=== PATIENT | male | born 1935 | race Caucasian/White ===

== ENCOUNTER → 2016-08-31 | Outpatient (CLI) | payer OTHER ==
[~2016-08-31] MED LIST: ATV5 PO; CHOL100010 PO; FINA5TAB4 PO; FLUT0.15 INTNAS; HYDR25TA4 PO
== END | disposition home or self-care (01) ==
LOC: C.RDSM 12:15
PROVIDERS: ATTEND Physical Medicine & Rehabilitation Sports Medicine
DX: M25.559 Pain in unspecified hip (principal); M25.562 Pain in left knee

== ENCOUNTER → 2017-08-04 | Outpatient (CLI) | payer OTHER ==
--- NOTE | 2017-08-04 15:43 | DIAGNOSTIC IMAGING REPORT ---
CHEST 2 VIEWS ROUTINE CLINICAL HISTORY: 81 years-old Male presenting with ABNORMAL Findings, hypertension. TECHNIQUE: PA and lateral views of the chest were obtained. COMPARISON: 03/17/2016. FINDINGS: Cardiomediastinal silhouette normal. Minimal left basilar opacities, unchanged. No pleural effusion or pneumothorax. Degenerative changes of the thoracic spine. Cholecystectomy clips noted. IMPRESSION: 1. No acute cardiopulmonary disease. Electronically signed by: Gallito Davenport M.D. 08/04/2017 3:42 PM Dictated Date/Time: 08/04/2017 3:41 PM
== END | disposition home or self-care (01) ==
LOC: C.RAD1850 15:16
PROVIDERS: ATTEND Family Medicine
DX: R93.8 Abnormal findings on diagnostic imaging of other specified body structures (principal); I10 Essential (primary) hypertension

== ENCOUNTER 2021-03-18 05:03 | Observation (INO) ==
--- NOTE | 2021-03-04 12:53 | PAT Medication Instructions ---
Medication Instructions Date of Service March 04, 2021 Home Medications lorazepam 0.5 mg tablet 0.5 mg PO HS finasteride 5 mg tablet 5 mg PO QAM cyanocobalamin (vitamin B-12) 1,000 mcg tablet (Vitamin B-12) 2,000 mcg PO QAM ] oxybutynin chloride 10 mg tablet,extended release 24 hr 10 mg PO HS empagliflozin 10 mg tablet (Jardiance) 10 mg PO QPM lisinopril 10 mg tablet 10 mg PO QAM meloxicam 15 mg tablet 15 mg PO QAM acetaminophen 500 mg tablet (Tylenol Extra Strength) 1,000 mg PO AMHS ASK your surgeon for instructions meloxicam 15 mg tablet 15 mg PO QAM DO NOT take the morning of surgery cyanocobalamin (vitamin B-12) 1,000 mcg tablet (Vitamin B-12) 2,000 mcg PO QAM lisinopril 10 mg tablet 10 mg PO QAM Take morning of surgery With a small sip of water, OTHERWISE NOTHING TO EAT OR DRINK AFTER MIDNIGHT: finasteride 5 mg tablet 5 mg PO QAM acetaminophen 500 mg tablet (Tylenol Extra Strength) 1,000 mg PO AMHS (okay to take up to 4 hours prior to surgery if needed) Take evening before surgery lorazepam 0.5 mg tablet 0.5 mg PO HS oxybutynin chloride 10 mg tablet,extended release 24 hr 10 mg PO HS empagliflozin 10 mg tablet (Jardiance) 10 mg PO QPM acetaminophen 500 mg tablet (Tylenol Extra Strength) 1,000 mg PO AMHS Other Notes If you have any questions please call us at [phone] or [phone] or [phone] or [phone]
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
[2021-03-18] MEDS ORDERED: oxyCODONE HCL 10 MG TABCR (OxyCONTIN) PO SCH (06:00)
[2021-03-18] MEDS ORDERED: TRANEXAMIC ACID 1,000 MG **IV Intra-op IV SCH (06:00)
[2021-03-18] MEDS ORDERED: cloNIDine HCL 0.1 MG/24 HR TRANSDERM SYS TD SCH (06:00)
[2021-03-18] MEDS ORDERED: traMADol HCL 50 MG TABLET PO SCH (06:00)
[2021-03-18] MEDS ORDERED: TRANEXAMIC ACID 1,000 MG **IV Pre-op IV SCH (06:00)
[2021-03-18] MEDS ORDERED: LR 60ML/HR IV SCH (06:00)
[2021-03-18] MEDS ORDERED: ACETAMINOPHEN 500 MG TAB PO SCH (06:00)
[2021-03-18] MEDS ORDERED: CeleBREX 200 MG CAP PO SCH (06:00)
[2021-03-18] MEDS ORDERED: ceFAZolin 1000MG 1,000 MG/7.5 ML SYR IV SCH (06:00)
[2021-03-18] MEDS ORDERED: METOCLOPRAMIDE HCL 10 MG TABLET PO SCH (06:00)
[2021-03-18] MEDS ORDERED: LR 500ML BOLUS, THEN 15ML/HR IV SCH (06:00)
[2021-03-18] MEDS ORDERED: ROPIVACAINE 0.5% HCL/PF 150 MG, BUPIVACAINE 0.75% MPF 20 ML, EPINEPHrine 0.15 MG, Ketor... INFIL SCH (06:00)
[2021-03-18] MEDS ORDERED: FAMOTIDINE 20 MG TAB PO SCH (06:00)
[2021-03-18] MEDS ORDERED: GABAPENTIN 300 MG CAP PO SCH (06:00)
[2021-03-18] MEDS ORDERED: ROPIVACAINE 0.5% 5 MG/ML 30 ML VIAL ONE (06:17)
[2021-03-18] MEDS ORDERED: BUPIVACAINE 0.5 % 5 MG/1 ML PF 10ML VIAL ONE (06:17)
[2021-03-18] MEDS ORDERED: KETAMINE 50 MG/5 ML SYRINGE ONE (06:30)
[2021-03-18] MEDS ORDERED: MIDAZOLAM HCL 1 MG/ML 2ML VIAL ONE (06:30)
--- NOTE | 2021-03-18 06:42 | History & Physical Bridge Note ---
Date of Service March 18, 2021 History & Physical Bridge Note I have examined the patient, reviewed the History & Physical and in the interval since the performance of the History & Physical I have noted the following changes of clinical significance: no changes noted
[2021-03-18] MEDS ORDERED: VANCOMYCIN HCL 1000MG/20ML VIAL ONE (06:59)
[2021-03-18] MEDS ORDERED: ONDANSETRON INJ 2 MG/ML 2 ML VIAL IV PRN ×2 (07:05→11:33)
[2021-03-18] MEDS ORDERED: fentaNYL citrate 100 MCG/2 ML VIAL IV PRN (07:05)
[2021-03-18] MEDS ORDERED: ePHEDrine sulfate 50 MG/ML AMP IV PRN (07:05)
[2021-03-18] MEDS ORDERED: HYDROmorphone INJ 2 MG/ML SYR/VIAL IV PRN (07:05)
[2021-03-18] MEDS ORDERED: ATROPINE SULFATE 0.1 MG/ML 10ML SYR IV PRN (07:05)
[2021-03-18] MEDS ORDERED: LIDOCAINE 2% 2 ML VIAL/AMP(20MG/ML) INFIL ONE (07:16)
[2021-03-18] MEDS ORDERED: ONDANSETRON INJ 2 MG/ML 2 ML VIAL ONE (07:16)
[2021-03-18] MEDS ORDERED: PROPOFOL IV EMULSION 10 MG/ML 20 ML VIAL IV ONE (07:16)
[2021-03-18] MEDS ORDERED: GLYCOPYRROLATE 0.2 MG/ML VIAL ONE (07:16)
[2021-03-18] MEDS: ORTHO JOINT ANESTHETIC ONE ×2 (10:50→13:00)
--- NOTE | 2021-03-18 11:21 | Post Operative Brief Note ---
Immediate Post Op Note v1 Date of Surgery March 18, 2021 Pre & Post Diagnosis Operation Date: 03/18/21 07:00 Pre-Op Diagnosis: Right Knee Osteoarthritis Post-Op Diagnosis: Right Knee Osteoarthritis I identified the patient and participated in the time-out.: Yes Procedure Operation Date: 03/18/21 07:00 Actual Procedures p Right Total Knee Arthroplasty(Right) - Gallito Roberts MD Surgeon Gallito Roberts MD Building Guard Deputy Sheriff gunner steward Estimated Blood Loss 50 Findings Consistent with Post-Op Diagnosis Specimens bone and tissue Anesthesia Type MAC Spinal Regional Complications none Disposition Accompanied Patient To Recovery: No Disposition: Recovery Room
[2021-03-18] MEDS ORDERED: diphenhydrAMINE 50 MG/ML VIAL IV PRN (11:33)
[2021-03-18] MEDS ORDERED: METOCLOPRAMIDE HCL INJ 5 MG/ML 2 ML VIAL IV PRN (11:33)
[2021-03-18] MEDS ORDERED: MAGNESIUM HYDROXIDE SUSP 30 ML UDC PO PRN (11:33)
[2021-03-18] MEDS ORDERED: bisacodyL 10 MG SUPP PR PRN (11:33)
[2021-03-18] MEDS ORDERED: NALOXONE HCL 0.4 MG/1 ML VIAL/CARP IV PRN (11:33)
[2021-03-18] MEDS ORDERED: TAMSULOSIN HCL 0.4 MG CAP PO PRN (11:33)
[2021-03-18] MEDS ORDERED: ALUMINUM/MAGNESIUM SUSP 30 ML UDC PO PRN (11:33)
[2021-03-18] MEDS ORDERED: oxyCODONE HCL IR 5 MG TAB (IMMEDIATE RELEASE) PO PRN (11:33)
--- NOTE | 2021-03-18 11:33 | Operative Report ---
Post Operative Report Pre & Post Diagnosis Operation Date: 03/18/21 07:00 Pre-Op Diagnosis: Right Knee Osteoarthritis Post-Op Diagnosis: Right Knee Osteoarthritis I identified the patient and participated in the time-out.: Yes Procedure Operation Date: 03/18/21 07:00 Actual Procedures p Right Total Knee Arthroplasty(Right) - Gallito Roberts MD Surgeon Gallito Roberts MD Fibrous Wallboard Inspector Ezequiel Awad PA-Yoly Estimated Blood Loss 50 Findings Consistent with Post-Op Diagnosis Specimens none Description of Procedure I was present for a majority of the case assisting with positioning, prepping, draping, wound retraction and hardware placement. No fellow present. Please see Dr. Roberts procedure note for specifics of the case. I attest to the content of the Intraoperative Record and any orders documented therein. Any exceptions are noted below.
--- NOTE | 2021-03-18 11:58 | Anesthesiology Progress Note ---
Date of Service March 18, 2021 Anesthesia Post Procedure Vital Signs Vital Signs: Temp Pulse Pulse Resp BP Pulse Ox 03/18/21 11:55 69 13 146/94 H 95 03/18/21 11:45 64 15 120/81 93 03/18/21 11:35 76 15 121/74 95 03/18/21 11:25 65 13 106/72 96 03/18/21 11:19 37.3 C 67 14 128/77 96 03/18/21 06:35 36.5 C 67 18 140/76 96 03/18/21 05:47 36.7 C 88 18 161/91 H 92 Transfer of Care Handoff Completed per policy Notes Mental Status: alert / awake / arousable and participated in evaluation Patient Amnestic to Procedure: Yes Nausea / Vomiting: adequately controlled Pain: adequately controlled Airway Patency, RR, SpO2: stable & adequate BP & HR: stable & adequate Hydration State: stable & adequate Neuraxial Anesthesia: was administered and sensory block is resolving Anesthetic Complications: no major complications apparent
[2021-03-18] MEDS ORDERED: PHARMACY GLYCEMIC MGMT CONSULT PRN (12:07)
--- NOTE | 2021-03-18 12:26 | XRay Report ---
RIGHT KNEE 2 VIEWS History: Right total knee arthroplasty. Degenerative arthritis. Postop. FINDINGS: The patient is status post a right total knee arthroplasty. The hardware is intact. No frac ture or dislocation. Skin jessica are in place. IMPRESSION: Right total knee arthroplasty. No evidence for hardware complication. ACT 112: Negative or not required by law. Electronically signed by: Basilio Rodarte M.D. 03/18/2021 12:24 PM
[2021-03-18] MEDS: CHECK CLONIDINE PATCH PLACEMENT SCH ×3 (13:01→23:59)
[2021-03-18] MEDS ORDERED: DEXTROSE 50% 50 ML SYRINGE IV PRN (13:15)
[2021-03-18] MEDS ORDERED: GLUCOSE 40% GEL 15 GM TUBE PO PRN (13:15)
[2021-03-18] MEDS ORDERED: GLUCAGON FOR INJ 1 MG VIAL IM PRN (13:15)
[2021-03-18] MEDS ORDERED: CARBOHYDRATES FOR HYPOGLYCEMIA PO PRN (13:15)
[2021-03-18] MEDS ORDERED: GLUCOSE 10 TABS/TUBE PO PRN (13:15)
--- NOTE | 2021-03-18 13:19 | Pharmacy Report ---
Pharmacy Glycemic Short Note 2 - Date of Service March 18, 2021 - Glycemic Short BSG Results (Last 24 hours): 03/18/21 03/18/21 03/18/21 05:18 11:22 12:44 POC Glucose 101 H 83 96 OUTPATIENT ANTIDIABETIC REGIMEN: * Jardiance 25 mg daily * HbA1C = 6.2% ASSESSMENT: * Mr Robles is an 85 y/o M with a PMH of well-controlled T2DM who presents for R TKA. Preop BSG was 101 mg/dL. * Currently BSG is 96 mg/dL. * Start Novolog weight-based stress of 2. * Hold off on basal insulin for now as patient's HbA1C indicates excellent control so should retain beta cell function. Will order NPH tomorrow based upon patient's BSGs today. * Hold Jardiance. PLAN FOR INPATIENT GLYCEMIC CONTROL: * Hold outpatient oral diabetes medications * Basal insulin * hold * Bolus insulin * NovoLog per scale ACHS or Q6hrs while NPO * Goal Range: Low 110 mg/dL - High 140 mg/dL * Correction Factor: 30 mg/dL/unit * Nutritional / Prandial insulin per carb ratio of 1 unit per 10 grams CHO consumed PLAN FOR DISCHARGE: * HbA1C indicates excellent control. Continue home regimen.
[2021-03-18] MEDS: KETOROLAC TROMETHAMINE 15 MG/ML VIAL IV SCH ×2 (13:44→20:51)
[2021-03-18] MEDS: INSULIN ASPART 100 UNITS/ML 3 ML PEN SC SCH ×3 (13:44→21:03)
[2021-03-18] MEDS: SODIUM CHLORIDE 0.9% 1000ML 1,000 ML IV SCH ×2 (14:39→23:54)
[2021-03-18] MEDS: ACETAMINOPHEN 500 MG TAB PO SCH ×2 (14:40→21:54)
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
[2021-03-18] MEDS: ceFAZolin 2000MG 2,000 MG/15 ML SYR IV SCH ×2 (16:22→23:58)
[2021-03-18] MEDS ORDERED: TRANEXAMIC ACID / 0.7% NACL 1,000 MG/100 ML BAG IV SCH (17:45)
--- NOTE | 2021-03-18 17:48 | Operative Report ---
Post Operative Report Pre & Post Diagnosis Operation Date: 03/18/21 07:00 Pre-Op Diagnosis: Right Knee Osteoarthritis Post-Op Diagnosis: Right Knee Osteoarthritis I identified the patient and participated in the time-out.: Yes Procedure Operation Date: 03/18/21 07:00 Actual Procedures p Right Total Knee Arthroplasty(Right) - Gallito Roberts MD Surgeon Gallito Roberts MD Computer Typesetter Keyliner Ezequiel Awad PABeatris Estimated Blood Loss 50 Findings Consistent with Post-Op Diagnosis Severe knee arthritis with medial compartment bone erosion and large intraosseous cyst in the tibia and medial femoral condyle Specimens Resected bone and soft tissue Anesthesia Type MAC Spinal Regional Disposition Accompanied Patient To Recovery: Yes Disposition: Recovery Room Indications Mr. Robles is 85. He has severe right knee arthritis with debilitating pain. After discussion of treatment options risks and benefits recovery. He has elected to proceed with surgery. Description of Procedure Informed consent obtained. Patient identified by me. He identified the operative site as the right knee. I marked with my initials. A preoperative surgical timeout was performed. He was taken to the operating room positioned supine on the OR table. A bump was placed under the right hip and a padded post under the right calf. A tourniquet was applied to the right thigh and the limb was prepped and draped in the usual sterile fashion he received a preoperative dose of intravenous antibiotics. DVT prophylaxis intraoperatively with foot pump on the nonoperative leg. He had a less than 5 degree flexion contracture. Flexion was approximately 120 degrees. He had 1+ MCL laxity and almost 2+ LCL laxity. Profound varus deformity. Right big toe which he recently had toenail ablation was benign. Limb exsanguinated with the Esmarch. Tourniquet inflated to 250 mmHg. A midline longitudinal incision was made followed by medial parapatellar arthrotomy. There was a well synovial lysed layer due to his chronic effusion which was removed throughout the entire knee as encountered. Patellar thickness was measured to be 24 mm. There were grade 3 changes on the patella with m arginal osteophytes which were debrided. The soft tissue synovial reflection in the lateral gutter was resected without performing a lateral release. Soft tissue in the anterior aspect the distal femur was resected. The retropatellar fat pad was resected. A an extensile medial release was performed releasing the deep MCL and pes tendons. This was carried around posterior medially and the semimembranosus and gastrocnemius were released. The medial meniscus remnant was removed. The lateral meniscus was removed. The cruciate ligaments were resected. Notch osteophytes removed. The knee was then subluxated. There is significant wear medially. Marginal osteophytes medial posterior medial removed. Significant wear on the femur as well and substantial eburnation in the medial compartment. Marginal osteophytes removed including underneath the MCL. Possible drilled into the tibia just in front of and between the tibial spines. The intramedullary alignment michael was inserted. The 3 degree cutting block was applied. It was aligned with the tibial tubercle and set to resect 10 mm off of the lateral side which corresponded to a skim cut medially. This was pinned into place and the extra medullary alignment michael was utilized to confirm slope and alignment both of which were acceptable. This cut was then made and recut as necessary. Patellar tendon protected. I then turned my attention to the femur where I drilled a balance staff staker hole just above the PCL and inserted the distal femoral cutting guide. 6 degree valgus 12 mm thick distal cut. This was pinned into place and the cut was made. The cut on the tibia revealed a large posterior cyst. This was 15 mm deep and 15 mm in diameter. It was contained by the posterior cortex. I ended up curettaging this and removing some of the sclerotic bone. It was later packed with a mixture of cortical cancellous granules bone putty and autograft. There was not enough autograft to fill both defects. On the femoral side there was a very large defect involving the medial condyle. This was just under the MCL and there was a sclerotic 3 to 4 mm rim of bone present. This perforated the medial inferior condyle posteriorly resulting in an uncontained lesion. Care was taken extraordinarily to not damage this. After the chamfer cuts had been made this defect was uncontained onto the posterior chamfer cut. The lesion was cur ettaged and I packed bone graft and allograft and autograft and putty into this area. This was brought out within a couple millimeters of the surface on both lesions which show then was to be cemented. The femoral lesion was 1-1/2 cm anterior to posterior 1-1/2 cm medial to lateral and at its deepest extent was almost 2cm in depth. It was more shallow laterally and deeper only more medially. Sclerotic areas of the bone on the femur tibia and patella were drilled as necessary. The the femur was then sized to a 5. It was actually 4-1/2. I went ahead and applied the 4 cutting block and made the anterior and posterior cuts as well as the chamfer cuts. Collateral ligaments were protected. At this time and then went ahead and applied the tibial tray. It was a size 4. The tray was lateralized and the uncapped medial bone was marked and then removed with a oscillating saw. This is the shift and resect technique. At this time the extension gap was a asymmetric 10. I was able to do further medial releasing which made this a slightly asymmetric 12 5 medially. I could not get the 12 5 block in in flexion. This necessitated additional posterior medial releasing and then further releasing of the superficial MCL most but not all. Medial soft tissue integrity was maintained. I then went ahead and I was able to get in the 12 5 block followed by the 15 5 block. This was able to be done in both flexion and extension. The lateral side was of course much laxer than the medial side and could accommodate this. There was a trace bit of residual LCL laxity in full extension and 90 degrees but what I felt acceptable. The leg was in valgus and it did not open when resting on the table with the components in. The box cutting guide was applied lateralized and the box cut was made and this femoral trial was applied. Bone grafting was performed. I then applied the tibial tray and the knee was placed through a range of motion to set the rotation which was then marked. The keel was drilled and punched and then repunched. The trial components were removed. The patellar guide was set to preserve 15 mm of bone. 38 mm 3 peg patella was selected. The cut was made. Patellar tracking was assessed at the conclusion the operation was good with no hands technique. Ortho joint mix injected in the back of the knee. Copious irrigation was performed throughout the surgery and the soft tissues were kept moist. This was done with moist sponges. I then meticulously prepared the bony surfaces. The tourniquet was let down prior to working on the patella. After 20 minutes it was reinflated. The initial tourniquet time was 125 minutes followed by 20 minutes down and then was up again for 30 minutes for cementation. After the tourniquet was put up again I irrigated and meticulously dried the bone. 2 bags of Simplex P cement were then mixed each containing 2 g of vancomycin for total 4 g of powdered Vanco. The cement was then mixed under vacuum. While in a maryjo ghy state the cement was applied. Posterior smears. Cement into the defect. The femoral femur was impacted and care was taken to not remove any cement from the defect. Tibia was cemented and the patella was as well. The knee was held in full extension with a trial spacer until the cement hardened the tourniquet was let down. Additional TXA was given. The knee slightly hyperextended and was lax with 12 5 spacer. The 15 mm spacer had full extension no laxity in full extension and no gaping open when at rest on the table. In mid position there was trace MCL laxity and 1+ LCL laxity. There was no laxity at 90 degrees for varus or valgus. The final polyethylene 15 mm was inserted after inspecting the back of the knee for cement which was removed as encountered. The back of the knee was also irrigated. Components inserted with a J[employer]J PFC Sigma fixed bearing knee. A stabilized +15 mm thick insert was utilized. A size 4 posterior stabilized femoral component and a fixed bearing keeled size 4 tibial tray and a 38 mm 3 peg oval dome patella. Patella tracked fine with no hands technique. The tissue below the equator the patella was closed with interrupted and running #1 Vicryl. The arthrotomy above the equator the patella was closed with interrupted #2 FiberWire. The subcutaneous layer is thin and only the top several centimeters required an layer of 0. The remainder was closed with 2-0 Vicryl and jessica. Leg was cleaned with wet and dry sponges and a box bulky soft sterile dressing was applied. Xeroform 4 x 4's ABD cast padding and a full-length Pete wrap followed by a hinged brace locked in extension. Patient was awake from anesthesia with difficulty and taken to recovery room in stable condition. There were no complications. Counts were correct and blood loss is estimated to be 50 cc. The remainder the Ortho joint mix was injected into the skin as well as the remainder of the knee joint while the cement was hardening at the time and at the time of wound closure. The resected bone and soft tissue were sent for specimen. At the conclusion the operation spoke to his daughter informed her of my findings and postoperative instructions were given. He may weight-bear as tolerated using the hinged brace for support. He may have range of motion as tolerated as well. I attest to the content of the Intraoperative Record and any orders documented therein. Any exceptions are noted below.
--- NOTE | 2021-03-18 18:02 | Orthopedic Progress Note ---
Date of Service March 18, 2021 Assessment & Plan (1) Arthritis of knee, right: (2) Knee joint replacement status: Plan: Doing well. Surgical findings reviewed and discussed. X-rays are reviewed and show anatomic alignment without complication or fracture. He has not voided yet and will need to monitor this. Otherwise he is afebrile his vital signs are stable. We discussed the results of the surgery including the need for extensive soft tissue releasing and bone grafting of the defects in the femur and tibia. He may weight-bear as tolerated. The brace is therefore collateral ligament protection. He can bend 0-90. We talked about pain management cont rol. Admission and Anticipated Discharge Date Admission Date: March 18, 2021 Subjective No problems noted. Pain is well controlled Physical Exam Physical Exam: Foot warm. Sensation intact throughout. 5 out of 5 ankle and toe plantarflexion dorsiflexion inversion eversion. Dorsalis pedis 2+. Dressing clean and dry. Results & Data ([facility]) Vital Signs (Past 12 Hours) Vital Signs Temp Pulse Pulse Resp BP Pulse Ox 03/18/21 15:20 36.2 C L 58 L 15 126/72 95 03/18/21 14:22 36.2 C L 70 17 136/72 94 03/18/21 13:24 35.6 C L 62 16 138/81 97 03/18/21 13:03 36.5 C 57 L 16 128/81 96 03/18/21 12:20 36.3 C L 62 16 136/87 95 03/18/21 11:55 69 13 146/94 H 95 03/18/21 11:45 64 15 120/81 93 03/18/21 11:35 76 15 121/74 95 03/18/21 11:25 65 13 106/72 96 03/18/21 11:19 37.3 C 67 14 128/77 96 03/18/21 06:35 36.5 C 67 18 140/76 96
[2021-03-18] MEDS: DOCUSATE SODIUM 100 MG CAP PO SCH (20:51)
[2021-03-18] MEDS: SENNA 8.6 MG TAB PO SCH (20:52)
[2021-03-18] MEDS: OXYBUTYNIN CHLORIDE XL 5 MG TABCR PO SCH (20:52)
[2021-03-18] MEDS ORDERED: ACETAMINOPHEN HOME PACK 500 MG TABLET PO SCH (21:00)
[2021-03-18] MEDS: LORazepam 0.5 MG TAB PO SCH (21:54)
[2021-03-19] MEDS: KETOROLAC TROMETHAMINE 15 MG/ML VIAL IV SCH ×2 (01:18→08:51)
[2021-03-19] MEDS: ACETAMINOPHEN 500 MG TAB PO SCH ×3 (05:33→22:02)
[2021-03-19] MEDS: ENOXAPARIN INJ 30 MG/0.3 ML SYR SQ SCH ×2 (05:34→18:15)
[2021-03-19 05:55] LABS: Hematocrit (blood only) 34.1 % (42-52); Hemoglobin 11.1 g/dL (14.0-18.0); Mean Corpuscular Hemoglobin 30.7 pg (25-34); Mean Corpuscular Hgb Conc 32.6 g/dL (32-36); Mean Corpuscular Volume 94.5 fL (80-100); Mean Platelet Volume 9.6 fL (7.4-10.4); Platelet Count 191 K/uL (130-400); RDW Coefficient of Variation 13.6 % (11.5-14.5); RDW Standard Deviation 47.2 fL (36.4-46.3); Red Blood Count 3.61 M/uL (4.7-6.1); White Blood Count 10.67 K/uL (4.8-10.8)
[2021-03-19] MEDS ORDERED: ENOXAPARIN INJ 30 MG/0.3 ML SYR SQ SCH (06:00)
[2021-03-19 06:25] LABS: BUN Creatinine Ratio 20.1 (10-20); Calcium 7.7 mg/dl (8.5-10.1); Creatinine Clr Calc Pharmacy 44.3 ml/min; Est GFR (African American) 59.9 ml/min; Est GFR (Non-African American) 51.7 ml/min; Potassium 4.3 mmol/L (3.5-5.1)
[2021-03-19] MEDS ORDERED: dexAMETHasone 4 MG TAB PO SCH (08:00)
--- NOTE | 2021-03-19 08:31 | Progress Notes ---
SUBJECTIVE: Resting comfortably in bed. Reports some pain overnight, which has been managed with me dication. No chest pains or shortness of breath. I spoke with the patient and with nursing. He could not void last night and had to be straight anais terized x1 for a yield of about 450. Subsequently, he has been able to void 125 mL on his own. He a t this time does not have any urinary urgency. OBJECTIVE: He is afebrile. His vital signs are stable. His dressing is clean and dry. The brace is intact. Dorsalis pedis is 2+. Strength is 5/5 with ank le and toe plantarflexion and dorsiflexion and ankle inversion and eversion. Sensation is normal thr oughout the foot. He is doing well status post total knee arthroplasty, right knee, postoperative day #1. PLAN: He can weight bear as tolerated with the brace locked in extension using a walker. PT and OT. Would like to seek placement at acute care rehab or intermediate. The brace is to be left on at all times. The brace can be unlocked so that he can do range of motion 0-90. We will continue to mo nitor his urinary symptoms and intervene as necessary. Yolienox for DVT. Job ID: [id number]
[2021-03-19] MEDS: CHECK CLONIDINE PATCH PLACEMENT SCH ×3 (08:51→23:33)
[2021-03-19] MEDS ORDERED: lisinopril 10 MG TAB PO SCH (09:00)
[2021-03-19] MEDS ORDERED: NovoLIN-N (NPH) PER UNIT CHARGE SQ ONE (09:00)
--- NOTE | 2021-03-19 09:27 | Pharmacy Report ---
Pharmacy Glycemic Short Note 2 - Date of Service March 19, 2021 - Glycemic Short BSG Results (Last 24 hours): 03/18/21 03/18/21 03/18/21 11:22 12:44 17:25 Glucose POC Glucose 83 96 99 03/18/21 03/19/21 03/19/21 21:01 05:18 08:19 Glucose 112 H POC Glucose 118 H 138 H OUTPATIENT ANTIDIABETIC REGIMEN: * Jardiance 25 mg daily * HbA1C = 6.2% ASSESSMENT: 03/19/21: * Jaya is POD #1 s/p R TKA * He received 7 units of novolog yesterday with good glycemic control. No basal insulin. * He is ordered a one time dose of dexamethasone 8 mg PO this morning. I have ordered NPH 20 units x 1 to cover for steroid induced hyperglycemia. May need to tighten carb coverage while steroid is on board. * No need for long acting basal insulin at this time Background: * Mr Robles is an 85 y/o M with a PMH of well-controlled T2DM who presents for R TKA. Preop BSG was 101 mg/dL. * Currently BSG is 96 mg/dL. * Start Novolog weight-based stress of 2. * Hold off on basal insulin for now as patient's HbA1C indicates excellent control so should retain beta cell function. Will order NPH tomorrow based upon patient's BSGs today. * Hold Jardiance. PLAN FOR INPATIENT GLYCEMIC CONTROL: * Hold outpatient oral diabetes medications * Basal insulin * NPH 20 units SQ x 1 - to be given with dexamethasone * Bolus insulin * NovoLog per scale ACHS or Q6hrs while NPO * Goal Range: Low 110 mg/dL - High 140 mg/dL * Correction Factor: 30 mg/dL/unit * Nutritional / Prandial insulin per carb ratio of 1 unit per 10 grams CHO consumed PLAN FOR DISCHARGE: * HbA1C indicates excellent control. Continue home regimen.
[2021-03-19] MEDS: FINASTERIDE 5 MG TAB PO SCH (10:15)
[2021-03-19] MEDS: DOCUSATE SODIUM 100 MG CAP PO SCH ×2 (10:15→22:03)
[2021-03-19] MEDS: CYANOCOBALAMIN 500 MCG TABLET (VITAMIN B-12) PO SCH (10:15)
[2021-03-19] MEDS: MULTIVITAMIN TAB PO SCH (10:16)
[2021-03-19] MEDS: INSULIN ASPART 100 UNITS/ML 3 ML PEN SC SCH ×4 (10:42→22:03)
[2021-03-19] MEDS ORDERED: SODIUM CHLORIDE 0.9% 500 ML IV SCH (16:15)
--- NOTE | 2021-03-19 18:16 | Hospitalist Progress Note ---
Date of Service March 19, 2021 Assessment & Plan (1) Knee joint replacement status: Plan: 03/18/[address] right total knee arthoplasty Dr Roberts (2) Type 2 diabetes mellitus: Plan: typically is on Jardiance, this will be held will be held in favor of basal bolus insulin (3) BPH (benign prostatic hyperplasia): Plan: Finestaride and oxybutynin patient does not have a Montejo catheter postoperative we will watch for urinary retention and provide as needed straight catheter orders for nursing staff (4) Acute blood loss anemia: Plan: hgb dropped to 11 no need for transfusion (5) HTN (hypertension): Plan: low bp post op day 1 likely from lisinopril holding and fluid bolus 500 ml/over 2 hours Admission and Anticipated Discharge Date Admission Date: March 18, 2021 Subjective pt is resting comfortably, has asymptomatic lower blood pressure, Review of Systems Review of Systems: Mild distress and fatigue no headache, no visual changes no speech or swallowing issues no chest pain, pressure or palpitations no shortness of breath, cough or wheezes no abdominal pain, nausea or vomiting, diarrhea or constipation no dysuria, hematuria or frequency typical post op knee replacement pain no back pain, CVA tenderness or radicular pain no bruising, bleeding or rashes no focal signs of weakness or numbness or altered sensation no complaints of anxiety or depression.. Physical Exam Physical Exam: The patient appeared well nourished and normally developed. Vital signs as documented. Head exam is normocephalic atraumatic Neck is without JVD, thyromegaly, or carotid bruits. Lungs are clear to auscultation, no focal loss of breath sounds Cardiac exam, Rhythm is regular.. No murmurs, rubs or gallops. Abdominal exam reveals normal bowel sounds, soft non tender, no masses Extremities are nonedematous and both pedal pulses are present, distal sensation is intact Neurologic exam is alert and oriented, has some memory loss, no focal loss of strength or sensation Skin is without bruises or rashes Results & Data Results & Data ([place]) Vital Signs (Past 12 Hours) Vital Signs Temp Pulse Resp BP BP Pulse Ox Pulse Ox 03/19/21 17:47 108/54 L 03/19/21 15:41 97.7 F 77 16 91/48 L 92 03/19/21 15:40 84/53 L 03/19/21 15:38 79/45 L 03/19/21 14:26 97 03/19/21 14:06 97 03/19/21 11:20 97.2 F L 84 18 104/62 97 03/19/21 10:05 74 15 92/52 L 96 03/19/21 09:52 91/50 L 03/19/21 09:45 81/40 L 03/19/21 07:47 97.7 F 79 18 100/55 L 94 PG Care Time/CCT Total # of Minutes Spent Total Time Spent with Patient: Total time spent is greater than 50% in coordination of care (as documented) at patient's floor/unit and/or counseling patient: Coding Level of Care Code 73697 Subseq Hosp Care Lvl 2 Diagnoses Knee joint replacement status Z96.659 Type 2 diabetes mellitus E11.9 Diabetes mellitus residential insulin use: without residential use Chronic kidney disease stage: stage 3 (moderate) BPH (benign prostatic hyperplasia) N40.0 Acute blood loss anemia D62 HTN (hypertension) I10 (1) Type 2 diabetes mellitus Diabetes mellitus residential insulin use: without residential use Chronic kidney disease stage: stage 3 (moderate)
[2021-03-19] MEDS: OXYBUTYNIN CHLORIDE XL 5 MG TABCR PO SCH (22:03)
[2021-03-19] MEDS: SENNA 8.6 MG TAB PO SCH (22:03)
[2021-03-19] MEDS: LORazepam 0.5 MG TAB PO SCH (22:04)
[2021-03-20] MEDS: ACETAMINOPHEN 500 MG TAB PO SCH (05:31)
[2021-03-20] MEDS: ENOXAPARIN INJ 30 MG/0.3 ML SYR SQ SCH (05:31)
[2021-03-20] MEDS: CHECK CLONIDINE PATCH PLACEMENT SCH (08:31)
[2021-03-20] MEDS: INSULIN ASPART 100 UNITS/ML 3 ML PEN SC SCH (08:32)
[2021-03-20] MEDS: FINASTERIDE 5 MG TAB PO SCH (08:33)
[2021-03-20] MEDS: MULTIVITAMIN TAB PO SCH (08:33)
[2021-03-20] MEDS: CYANOCOBALAMIN 500 MCG TABLET (VITAMIN B-12) PO SCH (08:33)
[2021-03-20] MEDS: DOCUSATE SODIUM 100 MG CAP PO SCH (08:34)
[2021-03-20] MEDS ORDERED: MELOXICAM 7.5 MG TAB PO SCH (09:00)
--- NOTE | 2021-03-20 11:17 | Discharge Summary ---
Date of Service March 20, 2021 Principal Diagnosis Right knee Osteoarthritis Discharge Data Allergies Allergy/AdvReac Type Severity Reaction Status Date / Time No Known Drug Allergies Allergy Verified 03/18/21 06:02 Consultations 03/18/21 12:07 Consult Internal Medicine Routine Procedures Performed Operation Date: 03/18/21 07:00 Actual Procedures p Right Total Knee Arthroplasty(Right) - Gallito Roberts MD Ordered Studies 03/18/21 05:00 US - OR guided needle placemen Routine Hospital Course (1) Arthritis of knee, right: (2) Knee joint replacement status: Patient is an 85yo male who underwent a right total knee arthroplasty by Dr Roberts on 03-18-21 with extensive soft tissue releasing and bone grafting to defects of femur and tibia. Surgery was without complication. He tolerated anesthesia. He received 24hr post-op antibitoics. Medicine consulted for underlying medical issues including DM Type 2, HTN, BPH. Patients hospital stay was without incident. His Hgb slightly low POD 1 at 11.1 but asymptomatic. VS stable throughout stay. Tolerated PO diet and PO fluids. DVT prophylaxis inhouse consisted of lovenox, SCDs, and brooks hose. Patient worked with physical therapy. In knee brace locked in extension with ambulating and can unlock at rest to 90 degrees. Worked with case management and decided on Home Health Physical Therapy. Patient was deems stable for discharge on POD 2 to home with family. Dressings change to ABD under brooks hose. Patient to be discharged with medications to include lovenox and oxycodone. OTC tylenol and stool softner recommended. Will continue with Brooks hose until 2wk post-op. Instructed on wound care. Will continue WBAT with knee brace locked in extension and use w alker. Can open brace to 90 degrees at rest. Is scheduled to follow-up with Dr Roberts for 2wk post-op appointment. Was instructed to call office or go to the ED with any questions, concerns, or emergencies. Please see below discharge plan for more detailed instructions. Total Time Total Time Spent Total Time Spent (In Minutes): 20 Discharge Plan Discharge Items Patient Disposition: Home - Home Health Services Reason For Visit: Right Knee Osteoarthritis Discharge Diagnosis: Right knee s/p total knee replacement Condition on Discharge: Good Activity: Per Instructions section Lifting: Wait until after follow-up appointment Bathing: Keep incision dry Exercise/Sports: Wait until after follow-up appointment Driving/Machine Use: No driving until cleared by Dr. Roberts Weightbearing: Right weightbearing Weightbearing Comment: as tolerated with walker; knee brace locked in extension Non-emergency contact: Surgeon Call non-emergency contact if: you have any medication questions, your pain is not controlled, your temperature is above 101, your wound has increased redness, your wound has increased drainage and your wound pain has increased Follow-up/Referrals: Mary Perez DO [Primary Care Provider] - Gallito Roberts MD [Surgeon] - 04/02/21 12:00 pm Diet: Carb Consistent or DM2 Addtl Attending Provider Instructions: New Medicine: * You will likely be taking one or more of these medications: 1. Lovenox 30mg twice daily injection for at least 2weeks until follow-up. Will re-assess continuing at that appointment. This is for prevention of blood clots. DO NOT TAKE OTHER NSAIDS WHILE ON THIS MEDICATION (IE MELOXICAM, MOTRIN, ALEVE, OR ASPIRIN) 2. Oxycodone - as prescribed for severe pain as needed 3. Tylenol - over the counter for mild to moderate pain 4. Colace & Senokot - Take to prevent constipation which can be caused by narcotics. These can be bought [id number] at the pharmacy * The most common side effects of pain medicine and iron are nausea and constipation. If nausea or constipation is too much of a problem or if you have any questions about your new medicines or doses, call [facility] at . We will try to help you manage these issues. Physical Therapy: * Do your physical therapy at home. These are the exercises you learned while in the hospital (quad sets, leg raises, calf pumps, gluteal squeezes, knee bending, and heel props.) You should do these exercises 3-4 times per day. * You will start Home Therapy. They will call to schedule appointment. * You may bear full weight on your leg with crutches or walker with the knee brace locked in extension. YOU CAN UNLOCK TO 90 DEGREES AT REST. Walking: * You may be up for short periods of time. Standing and walking for 1-2 hours at a time is usually okay. You should not stand or walk for excessive periods of time as this may cause increased pain and swelling. * Knee brace on and locked in extension with walking SELF CARE INSTRUCTIONS AFTER TOTAL KNEE REPLACEMENT * Your therapist will notify you when you are able to progress from a walker to a cane. * Wear TEDS as much as possible.~ They may be removed at night for laundering. * Do not place a pillow behind your knee when resting. A pillow at your ankle is okay. * Ice your knee 15-20 minutes every 2-3 hours and elevate it above the level of your heart. * You may shower on the fourth day after surgery using regular soap and water. Please cover your incision with a bag or plastic wrap. Do not get wet. Do not submerge your incision. Keep your incision covered with gauze pads under the TEDS hose until it is completly dry. * Anyone who is touching your surgical incision area should wash their hands and wear gloves. * There are a few signs you need to watch for after you are home. Call [facility] if you notice any of the followin. Increased severe knee pain. Some pain is expected especially when you exercise. 2. Increased swelling in your leg or knee; pain or swelling of the calf muscle in either lower leg. 3. Any fluid drainage from the incision. 4. Shortness of breath or chest pain. 5. Numbness and tingling in the surgical extremity C. Please call [facility] at if you have any concerns or questions about your operation or recovery. The doctor or his nurse will return your call promptly. D. Do not have any elective dental work or other elective procedures done for 6 weeks after your knee replacement. When you have any invasive procedure (dental cleaning, extraction, colonoscopy etc) performed, you will need to take antibiotics to prevent infection from developing in your artificial joint. Tell your other health care providers you have an artificial joint. My office will supply you with further information and the antibiotics. Call your doctor if: * Temperature above 101 degrees F. * Pain not relieved by pain medicine ordered. * Increased drainage or redness from incision. * Notify your doctor with any questions or concerns. Follow-up Visit: You will follow-up with Dr. Roberts 10-14 days after surgery. The office number is . Avoid all tobacco products. If you need help to stop smoking, call [place] QUITLINE at . This is a free call. Pending Studies at Discharge: No Stand-Alone Forms: [facility], Smoking Cessation Medications and DC Order Prescriptions: New enoxaparin [Lovenox] 30 mg/0.3 mL Syringe 30 mg subcut BID@0600,1800 14 Days Qty: 8.4 RF: 0 acetaminophen [Tylenol Extra Strength] 500 mg Tablet 1,000 mg PO Q8 PRN (Reason: pain) Qty: 60 RF: 0 oxycodone 5 mg Tablet 5 - 10 mg PO Q4H PRN (Reason: pain) Qty: 30 RF: 0 Continued lorazepam 0.5 mg Tablet 0.5 mg PO HS Qty: 0 RF: 0 finasteride 5 mg Tablet 5 mg PO QAM Qty: 0 RF: 0 acetaminophen [Tylenol Extra Strength] 500 mg tablet 1,000 mg PO AMHS RF: 0 Jardiance 10 mg tablet 10 mg PO QPM RF: 0 lisinopril 10 mg tablet 10 mg PO QAM RF: 0 oxybutynin chloride 10 mg tablet extended release 24hr 10 mg PO HS RF: 0 cyanocobalamin (vitamin B-12) [Vitamin B-12] 1,000 mcg Tablet 2,000 mcg PO QAM RF: 0 Discontinued meloxicam 15 mg tablet 15 mg PO QAM RF: 0 Discharge Orders: Discharge Order (Routine); Ordered 03/20/21 Ordered By: Maritza Franklin Admission Data Admit Date/Time: 03/18/21 11:33 Attending Provider: Gallito Roberts Admit Provider: Gallito Roberts Primary Care Provider: Mary Perez Other Providers: Charly Gómez ; Merlyn Gotti ; Ayush Shah ; Oren Herrmann ; Josias Gutierrez ; Cipriano Lovell ; Crow Ferrara ; Bri Cramer ; Leana Hunter ; Ulises Milner ; Mercy Baumann ; Ifrah Fields ; Too Becerril ; Raji Knapp ; Kurtis Paniagua ; Merlyn Petersen ; Vick Mendiola ; Johana Dominguez ; Marco Antonio Garland ; Ayush Dueñas ; eFng Delgado ; Brina Arauz ; Flip Yuan ; Mercy Knowles ; Gallito Martin ; Prasanna Alegre
--- NOTE | 2021-03-20 15:27 | Hospitalist Progress Note ---
Date of Service March 20, 2021 Assessment & Plan (1) Knee joint replacement status: Plan: 03/18/[address] right total knee arthoplasty Dr Roberts (2) Type 2 diabetes mellitus: Plan: typically is on Jardiance, this will be held will be held in favor of basal bolus insulin (3) BPH (benign prostatic hyperplasia): Plan: Finestaride and oxybutynin patient does not have a Montejo catheter postoperative we will watch for urinary retention and provide as needed straight catheter orders for nursing staff (4) Acute blood loss anemia: Plan: hgb dropped to 11 no need for transfusion (5) HTN (hypertension): Plan: improved Admission and Anticipated Discharge Date Admission Date: March 18, 2021 Subjective pt is resting comfortably, has asymptomatic lower blood pressure, Review of Systems Review of Systems: Mild distress and fatigue no headache, no visual changes no speech or swallowing issues no chest pain, pressure or palpitations no shortness of breath, cough or wheezes no abdominal pain, nausea or vomiting, diarrhea or constipation no dysuria, hematuria or frequency typical post op knee replacement pain no back pain, CVA tenderness or radicular pain no bruising, bleeding or rashes no focal signs of weakness or numbness or altered sensation no complaints of anxiety or depression.. Physical Exam Physical Exam: The patient appeared well nourished and normally developed. Vital signs as documented. Head exam is normocephalic atraumatic Neck is without JVD, thyromegaly, or carotid bruits. Lungs are clear to auscultation, no focal loss of breath sounds Cardiac exam, Rhythm is regular.. No murmurs, rubs or gallops. Abdominal exam reveals normal bowel sounds, soft non tender, no masses Extremities are nonedematous and both pedal pulses are present, distal sensation is intact Neurologic exam is alert and oriented, has some memory loss, no focal loss of strength or sensation Skin is without bruises or rashes Results & Data Results & Data ([facility]) Vital Signs (Past 12 Hours) Vital Signs Temp Pulse Pulse Resp BP BP Pulse Ox 03/20/21 12:12 98.6 F 69 86 16 106/56 L 108/54 L 95 03/20/21 06:46 98.6 F 86 16 106/56 L 95 PG Care Time/CCT Total # of Minutes Spent Total Time Spent with Patient: Total time spent is greater than 50% in coordination of care (as documented) at patient's floor/unit and/or counseling patient: Coding Level of Care Code 57179 Subseq Hosp Care Lvl 1 Diagnoses Knee joint replacement status Z96.659 Type 2 diabetes mellitus E11.9 Diabetes mellitus group home insulin use: without group home use Chronic kidney disease stage: stage 3 (moderate) BPH (benign prostatic hyperplasia) N40.0 Acute blood loss anemia D62 HTN (hypertension) I10 (1) Type 2 diabetes mellitus Diabetes mellitus group home insulin use: without group home use Chronic kidney disease stage: stage 3 (moderate)
--- NOTE | 2021-03-20 21:33 | Orthopedic Progress Note ---
Date of Service March 20, 2021 Assessment & Plan (1) S/P total knee replacement using cement: Plan: Patient was seen in his room today. New knee dressings were applied by me today. He was educated regarding today's findings. Patient feels ready for discharge. Home health services have been established by certified social workers in health care. He will be seen tomorrow. Patient will be discharged home. Continue using the knee immobilizer. Continue using his walker when standing or ambulating. Ice and elevate the leg frequently to reduce pain and swelling. Prescriptions were sent to his pharmacy. Continue his Lovenox daily. Written discharge instructions were given. Follow-up in the office in 2 weeks for staple removal. He may shower, but should avoid getting the wound wet. Admission and Anticipated Discharge Date Admission Date: March 18, 2021 Subjective Patient is seen in his room this morning. He states he feels well. He feels ready to go home. He denies any significant pain. He has been ambulatory. He denies any chest pain, shortness of breath, nausea, vomiting, or abdominal pain. He has been voiding. Review of Systems Review of Systems: Unchanged from yesterday. Physical Exam Physical Exam: General: Well-developed, well-nourished, elderly white male, in no acute distress. Sitting in his chair. Alert and oriented. Conversive. Skin: Warm and dry with good turgor. No rashes or lesions. Healing surgical incision on the right anterior knee. Friona are intact. Wound edges are well approximated. No active bleeding. Expected postoperative ecchymosis. Minimal edema. Musculoskeletal: Patient has intact motor function of his hip, knee, and ankle. He is able to lift the leg, but cannot fully lock out the quad. There is a min or lag. No significant discomfort with palpation about the right knee today. Neurologic: Gross sensation is intact across the right leg by soft touch. Results & Data ([facility]) Vital Signs (Past 12 Hours) Vital Signs Temp Pulse Pulse Resp BP BP Pulse Ox 03/20/21 12:12 37 C 69 86 16 106/56 L 108/54 L 95 Laboratory Results Glucose obtained today is 116.
== END 2021-03-20 13:13 | disposition home health service (06) ==
LOC: 3E 05:03 → ASU 05:03